=== PATIENT | female | born 1990 | race Caucasian/White ===

== ENCOUNTER 2024-09-14 14:55 | Outpatient (CLI) | payer OTHER, SELFPAY | END 2024-09-14 14:56 | disposition home or self-care (01) | LOC: NFLDREF 09-16 08:48 | PROVIDERS: Visit Provider Obstetrics & Gynecology | DX: O99.213 Obesity complicating pregnancy, third trimester (principal); O35.AXX0 Maternal care for other (suspected) fetal abnormality and damage, fetal facial anomalies, not applicable or unspecified; Z3A.28 28 weeks gestation of pregnancy | CPT/HCPCS: 86592; 86850 ==

== ENCOUNTER 2024-09-14 14:58 | Outpatient (CLI) | payer OTHER, SELFPAY ==
--- NOTE | 2024-09-14 15:00 | CRLHL7_ITS ---
For Patients: As a result of the Century Cures Act, medical imaging exams and procedure reports are released immediately into your electronic medical record. You may view this report before your referring provider. If you have questions, please contact your health care provider. INDICATION: Obesity, evaluate mandible, maxilla and neck COMPARISON: None. TECHNIQUE: Real-time reynolds-scale imaging of the pelvis was performed. FINDINGS: heart rate 149 beats per minute. Sonographic gestational age 28 weeks 5 days and sonographic due date of 12/02/2024. Estimated weight 1317 grams, 42nd percentile. Single deepest pocket 5.0 cm. Placenta posterior. Vertex position. Images of the neck, mandible and maxilla are suboptimal due to position and gestational age. IMPRESSION: Images of the neck, mandible and maxilla are suboptimal due to position and gestational age. Dictated by Garett Mackey MD @ 09/15/2024 11:37:43 AM (Electronically Signed)
== END 2024-09-14 14:59 | disposition home or self-care (01) ==
LOC: US 14:59
PROVIDERS: Visit Provider Registered Nurse
DX: O99.210 Obesity complicating pregnancy, unspecified trimester (principal)
CPT/HCPCS: 76816

== ENCOUNTER 2024-09-15 08:00 | Outpatient (CLI) | payer OTHER, SELFPAY | END 2024-09-15 08:01 | disposition home or self-care (01) | LOC: NFLDREF 09-17 05:06 | PROVIDERS: Visit Provider Obstetrics & Gynecology | DX: Z34.93 Encounter for supervision of normal pregnancy, unspecified, third trimester (principal); Z3A.28 28 weeks gestation of pregnancy | CPT/HCPCS: 82951; 82952 ==

== ENCOUNTER 2024-10-07 09:28 | Outpatient (CLI) | payer OTHER, SELFPAY | END 2024-10-07 09:29 | disposition home or self-care (01) | LOC: US 09:29 | PROVIDERS: Visit Provider Obstetrics & Gynecology | DX: O99.213 Obesity complicating pregnancy, third trimester (principal); Z3A.32 32 weeks gestation of pregnancy | CPT/HCPCS: 76811 ==

== ENCOUNTER 2024-10-23 14:35 | Outpatient (CLI) | payer OTHER, SELFPAY ==
--- NOTE | 2024-10-23 14:00 | CRLHL7_ITS ---
For Patients: As a result of the Cures Act, medical imaging exams and procedure reports are released immediately into your electronic medical record. You may view this report before your referring provider. If you have questions, please contact your health care provider. INDICATION: High BMI. TECHNIQUE: Real time reynolds scale imaging of the fetus was performed. COMPARISON: 10/07/2024 FINDINGS/IMPRESSION: Sonographic imaging demonstrates a single living intrauterine gestation. Fetus demonstrates a regular cardiac rate of 136 beats per minute. Fetus has a vertex position. The placenta lies posteriorly. Amniotic fluid volume appears normal and there is a single deepest pocket of 7.6 cm. The estimated weight is 2203gm which lies at the 20th %. On the prior OB ultrasound dated 10/07/2024 the estimated weight was at the 23rd percentile. BPD 9th percentile. HC is 7th percentile. AC is 36th percentile. FL is 11th percentile. Sonographic gestational age 33 weeks 2 days and a sonographic due date 12/09/2024. Sonographic age 8 days behind the clinical age. The fetus was active and demonstrated normal breathing movements. There was normal flexion and extension of the trunk and extremities. Biophysical profile 05/28. Dictated by Garett Mackey MD @ 10/25/2024 6:35:46 AM (Electronically Signed)
== END 2024-10-23 14:36 | disposition home or self-care (01) ==
LOC: US 14:35
PROVIDERS: Visit Provider Obstetrics & Gynecology
DX: O99.211 Obesity complicating pregnancy, first trimester (principal); Z3A.08 8 weeks gestation of pregnancy
CPT/HCPCS: 76816; 76819

== ENCOUNTER 2024-10-30 13:59 | Outpatient (CLI) | payer OTHER, SELFPAY ==
--- NOTE | 2024-10-30 14:00 | CRLHL7_ITS ---
For Patients: As a result of the Century Cures Act, medical imaging exams and procedure reports are released immediately into your electronic medical record. You may view this report before your referring provider. If you have questions, please contact your health care provider. INDICATION: Obesity COMPARISON: 10/23/2024 TECHNIQUE: Real time reynolds scale imaging of the fetus was performed. Without non-stress testing. FINDINGS: Sonographic imaging demonstrates a single living intrauterine gestation. Fetus demonstrates a regular cardiac rate of 147 beats per minute. Fetus has a vertex position. The amniotic fluid volume appears normal and there is a single deepest pocket measurement of 7.2 cm. The fetus was active and demonstrated normal breathing movements. There was normal flexion and extension of the trunk and extremities. IMPRESSION: Normal biophysical profile score of 8 out of 8. Dictated by Garett Mackey MD @ 10/30/2024 7:49:15 PM (Electronically Signed)
== END 2024-10-30 14:00 | disposition home or self-care (01) ==
LOC: US 14:01
PROVIDERS: Visit Provider Obstetrics & Gynecology
DX: O99.210 Obesity complicating pregnancy, unspecified trimester (principal)
CPT/HCPCS: 76819

== ENCOUNTER 2024-11-06 13:53 | Outpatient (CLI) | payer OTHER, SELFPAY ==
--- NOTE | 2024-11-06 14:00 | CRLHL7_ITS ---
For Patients: As a result of the Century Cures Act, medical imaging exams and procedure reports are released immediately into your electronic medical record. You may view this report before your referring provider. If you have questions, please contact your health care provider. INDICATION: Maternal obesity TECHNIQUE: Ultrasound OB pelvis transabdominal. Real-time reynolds-scale imaging of the fetus was performed with color Doppler and spectral Doppler analysis of the umbilical artery without stress testing. COMPARISON: 10/30/2024 FINDINGS: Sonographic imaging demonstrates a single living intrauterine gestation. Fetus demonstrates a regular cardiac rate of 134 beats per minute. Fetus has a cephalic orientation. The placenta lies posterior. Amniotic fluid volume appears normal with an ANA CRISTINA of 18.9 cm. breathing movements, motion, and tone were all observed. IMPRESSION: Single viable intrauterine with a biophysical profile 05/28. Dictated by Marcus Winters MD @ 11/06/2024 4:23:52 PM (Electronically Signed)
== END 2024-11-06 13:54 | disposition home or self-care (01) ==
LOC: US 13:55
PROVIDERS: Visit Provider Obstetrics & Gynecology
DX: O99.210 Obesity complicating pregnancy, unspecified trimester (principal)
CPT/HCPCS: 76819; 87081; 87653

== ENCOUNTER 2024-11-10 23:08 | Inpatient (IN) | payer OTHER, SELFPAY ==
[2024-11-10 23:19] VITALS: PULSE 90; O2SAT 98
[2024-11-10 23:20] VITALS: BP 117/83; PULSE 85
[2024-11-10 23:45] VITALS: TEMP 36.7
[2024-11-11] VITALS (69 sets, daily range): BP systolic 79–145; BP diastolic 46–88; PULSE 70–116; RESP 16; TEMP 36.4–36.9; O2SAT 88–99; BMI 46.3
[2024-11-11 00:29] LABS: Basophils Absolute Auto 0.02 K/uL (0.00-0.30); Basophils Percent Auto 0.2 % (0.0-3.0); Eosinophils Absolute Auto 0.04 K/uL (0.00-0.50); Eosinophils Percent Auto 0.4 % (0.0-7.0); Hematocrit 35.5 % (33.0-51.0); Hemoglobin* 12.1 gm/dL (12.0-16.0); Immature Granulocytes Abs Auto 0.03 K/uL (0.00-0.30); Immature Granulocytes Pct Auto 0.3 %; Lymphocytes Percent Auto 15.5 % (20-44); Mean Corpuscular HGB Conc 34 gm/dL (32-36); Mean Corpuscular Hemoglobin 32 pg (26-34); Mean Corpuscular Volume 93 fL (80-100); Monocytes Percent Auto 5.3 % (0.0-11.0); Neutrophils Percent Auto 78.3 % (42.0-72.0); Platelet Count* 307 K/uL (140-440); RDW Coefficient of Variation % 12.1 % (11.5-15.5); Red Blood Count 3.81 m/uL (4.00-5.20)
[2024-11-11 00:30] LABS: Slide Review Reflex No
[2024-11-11] MEDS: ACETAMINOPHEN 500 MG TABLET 1000 MG PO (01:30)
[2024-11-11] MEDS: OXYTOCIN 30 unit/500 ML in NS 30 UNIT/500 ML BAG IVPB (04:37)
[2024-11-11] MEDS: LACTATED RINGERS 1000 ML 1,000 ML IV ×2 (04:38→05:35)
[2024-11-11] MEDS: LIDOCAINE 2% (PF) 5 ML VIAL EPIDURAL (05:33)
[2024-11-11] MEDS: ROPIVACAINE 0.2% 100 ml 100 ML 12 MG EPIDURAL (05:37)
[2024-11-11] MEDS: PHENYLEPHRINE 100 MCG/ML SYRINGE IVP ×4 (05:41→05:49)
--- NOTE | 2024-11-11 05:57 | P.ANBPRC_ITS ---
PFSH PFSH Surgical History [place] teeth extracted ?K08.409 - Partial loss of teeth, unspecified cause, unspecified class (ICD- 10) History of tonsillectomy ?Z90.89 - Acquired absence of other organs (ICD-10) Social History What is your current living situation?: I presently have a place to live Problems where you live: no known problems In the past 12 months, utilities in danger of being shut off: no In past 12 months, lack of transportation kept you from medical appts, meetings, work, or getting things needed for daily living: no In the past 12 mos, have been you worried that your food would run out before you had money to buy more?: unable to answer In the past 12 mos, the food you bought just didn't last and you didn't have money to buy more?: never true Smoking Status: Never smoker How often does anyone, including family, friends and others, physically hurt you : never How often does anyone, including family, friends and others, insult or talk down to you: never How often does anyone, including family, friends and others, threaten you with harm: never How often does anyone, including family, friends and others, scream or curse at you: never Meds Home Medications and Allergies Home Medications ?Medication ?Instructions ?Recorded ?Confirmed ?Type aspirin 81 mg chewable tablet 81 mg PO QDAY 09/04/24 11/10/24 History cholecalciferol (vitamin D3) 10 10 mcg PO QDAY 09/04/24 11/10/24 History mcg (400 unit) capsule docosahexaenoic acid 200 mg 1 mg PO 09/04/24 11/06/24 History capsule ( DHA) magnesium 200 mg tablet 200 mg PO QDAY 09/04/24 11/10/24 History calcium carbonate (Tums) 200 mg PO BID 09/14/24 11/10/24 History Allergies Allergy/AdvReac Type Severity Reaction Status Date / Time No Known Drug Allergies Allergy Verified 11/06/24 10:50 Results Labs Labs: Laboratory Results - last 24 hr 11/11/24 00:15 WBC 10.10 RBC 3.81 L Hgb 12.1 Hct 35.5 MCV 93 MCH 32 MCHC 34 RDW Coeff of [place] 12.1 Plt Count 307 Neut % (Auto) 78.3 H Lymph % (Auto) 15.5 L [place] % (Auto) 5.3 Eos % (Auto) 0.4 Baso % (Auto) 0.2 Neut # (Auto) 7.90 H Lymph # (Auto) 1.60 [place] # (Auto) 0.50 Eos # (Auto) 0.04 Baso # (Auto) 0.02 Abs Immat Gran (auto) 0.03 Imm/Tot Granulo (auto) 0.3 Blood Type O Positive Antibody Screen NEGATIVE Vital Signs Vital Signs: Last Vital Signs Temp 97.5 F L 11/11/24 04:56 Pulse 96 11/11/24 05:55 BP 102/61 11/11/24 05:55 Pulse Ox 99 11/11/24 05:55 Anesthesia Procedures Epidural Insertion Patient Location: OB Start Time: 05:20 Stop Time: 06:20 Start Date: 11/11/24 Stop Date: 11/11/24 Reason for Block: procedure for pain Patient Position: sitting Performed By: Dea Nance Preanesthetic Checklist: IV checked, risks and benefits discussed, monitors and equipment checked, pre-op evaluation, timeout performed and anesthesia consent Prep: chlorhexidine gluconate Monitoring: blood pressure monitoring, continuous pulse oximetry and heart rate Approach: midline Vertebral Space: lumbar (1-5) Epidural Technique: YOLIE saline Needle Type: Tuohy needle Injection Technique: continuous catheter (continuous catheter) Needle gauge: 17 Needle Length (cm): 10 cm Needle Insertion Depth (cm): 8 Catheter Gauge: 19 Catheter Type: multi-orifice Catheter at skin depth (cm): 15 Test Dose Result: negative and lidocaine 1.5% with epinephrine 1 to 200,000
--- NOTE | 2024-11-11 06:40 | PM.OBHPLI ---
OB - H&P: HPI Labor/Induction History of Present Illness Time Seen by Provider: 06:41 Date Seen: 11/11/24 Chief Complaint: The patient is a 34 year old 1 para 0 at 37 weeks 0 days gestation by LMP, who presents with PROM. SHANA: 12/01/2024. Membranes ruptured at 10:15PM on 11/10/2024, clear fluid,GBS negative. Reported some cramping on admission mostly feeling in her back. Normal movement. complicated by prepregnancy BMI >40. Chief complaint: Maternity : 1 Para: 0 Narrative: Penny Herron is a 34 year old female Specific Issues/Plans G 1 P 0 : [place] Expecting a girl! # Obesity. Pre BMI 42. [x]Level 2 ultrasound [x]Daily low-dose aspirin []Nutrition consult discussed 09/14; will await 3 hr GTT results. []Anesthesia consult [x]Growth ultrasound at 28 and 34 weeks []Weekly testing starting 34 weeks growth ultrasound at 06/09/2034 weeks []Delivery at 39 weeks # 28 week growth US and f/u on maxilla, mandible, and neck [x] Repeat US: EFW: 42%. Images of neck, mandible, and maxilla are suboptimal due to the position of the fetus. Normal on 10/07 w/ MFM aside from HC/BPD of <3%ile - pt declined repeat US with MFM, growth US on 10/23/24 with BPD/HC at 8/8 and 7.3%ile respectively. # 1 hr GTT = 142. 3 hr GTT: Normal # Father of baby born with extra tissue in his lungs and needed surgery to remove it. Possible congenital pulmonary airway malformation (CPAM). # NIPT completed. Insufficient DNA. Elected to not repeat. Labs: Blood type O positive, antibody screen negative, hemoglobin 12.4, platelets 382, rubella immune, TPPA nonreactive, hepatitis-B antigen negative, HIV negative, chlamydia and gonorrhea both negative, urine culture with mixed bacteria, hepatitis-C negative, hemoglobin A1c 5.3 NIPT: 05/05/2024: Insufficient DNA. Patient elected to not repeat this test. Pap smear 05/05/2024: Normal, negative HPV Ultrasound: 05/01/2024: Single live intrauterine at 9 weeks 1 day EGA. 05/25/2024: IUP at 12 weeks 6 days. Nuchal area appears normal. Ultrasound agrees with assigned SHANA 12/01/2024. anatomy appears normal for gestational age. Image quality in detail limited by gestational age. Grossly normal views noted above. No adnexal masses were identified. Recommendations:NIPS 1st draw insufficient. All woman should be offered maternal serum alpha protein screening at 15-18 weeks. An early anatomic survey has up to 60-70% detection rate for anomalies. The above survey is reassuring. A detailed exam with FE near 20 weeks is still recommended due to BMI. 08/05/2024: IUP at 23 weeks 1 day. No anomalies detected. echocardiogram appears normal. Image quality in detail limited by maternal habitus. No markers for aneuploidy seen. biometry is consistent with gestational age. ANA CRISTINA appears normal. Normal cervical length. No evidence of placenta previa. * maxilla inadequately visualized, mandible inadequately visualized, neck inadequately visualized. Recommendations: Growth and follow-up anatomy at 28 weeks Repeat growth ultrasound at 34 weeks Weekly testing at 34 weeks and radiology due to pre gravid BMI 09/14/24: cephalic, SDP 5.0, EFW 42%, AC 63%, awaiting final report [] 10/07: EFW 1792 g, 22.5 percentile. Normal anatomy visualized - normal mandible/maxilla. MVP 7.3. Cervix appears long/closed. [Plan for testing] H&P: [] Imaging: [Summary of level II or follow up US here] Vaccinations: Flu: Declined Covid: Completed, not up-to-date. Recommended, declines. Tdap: 09/28/24 RSV: Declined 32 week mental health: [] Last pap: April 2024 normal, negative HPV History of Present Dating criteria: based on LMP care: good care Ultrasounds: normal 1st trimester US, normal mid trimester US and other Labs Blood type: O (+) positive Rubella: immune RPR/VDLR: nonreactive GBS status: negative HBsAG: negative Review of Systems Status of ROS: Reports: 10 or more systems reviewed and unremarkable except as noted in History and below Meds Home Medications and Allergies Home Medications ?Medication ?Instructions ?Recorded ?Confirmed ?Type aspirin 81 mg chewable tablet 81 mg PO QDAY 09/04/24 11/10/24 History cholecalciferol (vitamin D3) 10 10 mcg PO QDAY 09/04/24 11/10/24 History mcg (400 unit) capsule docosahexaenoic acid 200 mg 1 mg PO 09/04/24 11/06/24 History capsule ( DHA) magnesium 200 mg tablet 200 mg PO QDAY 09/04/24 11/10/24 History calcium carbonate (Tums) 200 mg PO BID 09/14/24 11/10/24 History Allergies Allergy/AdvReac Type Severity Reaction Status Date / Time No Known Drug Allergies Allergy Verified 11/06/24 10:50 OB - H&P: Exam Physical Exam: Vital signs: Temp Pulse BP Pulse Ox 97.5 F L 72 115/66 95 11/11/24 04:56 11/11/24 06:23 11/11/24 06:23 11/11/24 06:40 Narrative: General: Pleasant, well-groomed woman in no acute distress. Vital signs: per the EMR Chest: CTA bilaterally Heart: RRR w/o gallop, rub or murmur Abdomen: Gravid, nontender EFM: Baseline: 140's. Accelerations: present. Decelerations: absent. Moderate variability. Reactive. Category 1 TOCO: Q2-5minutes: patient reports cramping in her back. SVE per nursin.5/90%/-1/post/soft Extremities: no pain or edema. OB - Results Labs Labs: Short CBC 11/11/24 Range/Units 00:15 WBC 10.10 (4.50-11.00) K/uL Hgb 12.1 (12.0-16.0) gm/dL Hct 35.5 (33.0-51.0) % Plt Count 307 (140-440) K/uL OB - Problem Based A/P Additional Plan (1) PROM (premature rupture of membranes): Status: Acute Plan 1. GBS negative. 2. Patient desires epidural for labor analgesia 3. Blood type O+ Delivery/Labor/Induction Plan Plan: other (Expectant management for 6 hours if no spontaneous labor then pitocin per induction protocol. ) Induction method: per pitocin protocol
--- NOTE | 2024-11-11 07:40 | PM.OBPNL ---
Subjective Time Seen by Provider: 07:30 Date Seen: 11/11/24 Narrative: The patient reports feeling restless. She has been aware of pelvic pressure for about an hour. Objective Vital Signs: Last Vital Signs Temp 97.5 F L 11/11/24 04:56 Pulse 91 11/11/24 07:32 BP 106/59 L 11/11/24 07:32 Pulse Ox 94 11/11/24 06:40 Pelvic Exam Dilation (cm): 8.5 Effacement (%): 100 Station: 0 Contractions Contraction Frequency: not tracing well Contraction intensity: Moderate Pitocin Rate (mU/min): 3 Assessment Assessment: active labor Station: 0 Status: Category ll Heart Rate Baseline: 130 Heating And Air Conditioning Mechanic Variability: Moderate (6-25) Monitor Accelerations: Present Monitor Decelerations: Variable Plan Plan: IUPC placed to better monitor contractions and titrate pitocin. Anticipate vaginal delivery.
[2024-11-11] MEDS: LIDOCAINE 1 % PF 30 ML INJECTION (12:03)
--- NOTE | 2024-11-11 12:26 | W.PM.OBVAGDE ---
OB Procedure Vag Delivery Mother Details Mother Details: The patient is a 34 year-old, 1, Para 0, admitted on 11/10/2024 at 37 0/7 weeks gestation with premature rupture of membranes (PROM). Membranes ruptured at 10:15PM on 11/10/2024, clear fluid, GBS negative. Reported some cramping on admission mostly feeling in her back. Normal movement. complicated by prepregnancy BMI >40. Pitocin augmentation of labor began at 0430 on 11/11/2024. : 1 Para: 0 Weeks Gestation: 37 Admission Date: 11/10/24 Additional Details Amniotic Membrane Status: SROM Amniotic Membrane Rupture Date: 11/10/24 Amniotic Membrane Rupture Time: 22:15 Amniotic Membrane Fluid Description: Clear Analgesia/Anesthesia Type: Epidural (at 0530 on 12/12/2024) Waterbirth: No Pitcoin: Yes Intrapartal Events: Labor Augmentation Delivery augmentation: pitocin Labor Onset: 03:45 Complete: 10:57 Pushin:11 Heart: heart tones during second stage were 120 baseline with variable decelerations, category 2. Delivery Details Delivery Date: 11/11/24 Delivery Time: 11:55 Route of delivery: Infant Gender: Female Infant Viability: Alive; Heart Rate Present Position at Delivery: OA Delivery Details: Delivered via spontaneous vaginal delivery. Infant was placed on maternal abdomen.? Cord was clamped and cut after a 30-60 second delay. Nose and mouth were bulb suctioned.? taken to the warmer for evaluation and CPAP. Infant weight pending. Additional Details Shoulder Dystocia: No Placenta Delivery Time: 12:02 Placental Delivery Description: Spontaneous Delivery repair: Chromic Procedure Done: Global Blood Loss: 130 Laceration: Perineal - 2nd Degree (and right periurethral 1st degree) Episiotomy Description: None Blood Loss Measurement Type: QBL Bakri Used: No Sponge/Need Count Correct: Yes Cord Vessel Description: 3 Vessels Event Summary Status: Mother and were stable after delivery. Disposition: floor
[2024-11-11 13:40] LABS: Hematocrit 34.3 % (33.0-51.0); Hemoglobin* 11.5 gm/dL (12.0-16.0); Mean Corpuscular HGB Conc 34 gm/dL (32-36); Mean Corpuscular Hemoglobin 32 pg (26-34); Mean Corpuscular Volume 94 fL (80-100); Platelet Count* 291 K/uL (140-440); Red Blood Count 3.64 m/uL (4.00-5.20); White Blood Count* 14.21 K/uL (4.50-11.00)
[2024-11-11 13:44] LABS: Slide Review Reflex No
[2024-11-11 13:57] LABS: Alanine Aminotransferase* 19 U/L (4-35); Aspartate Amino Transferase* 22 U/L (12-35); Creatinine* 0.5 mg/dL (0.5-1.5); Estimated Glomerular Filt Rate 127 ml/min
[2024-11-11 13:58] LABS: Blood Urea Nitrogen* 9 mg/dL (5-24)
--- NOTE | 2024-11-11 16:20 | P.DS_ITS ---
DS: Providers Provider Time Seen by Provider: 16:20 Date Seen: 11/11/24 Date of admission: 11/11/24 12:31 Primary care physician: Not a Local Provider Admitting Clinician: Siri Barbosa MD Attending Physician on discharge: Destinee Monge MD Date of Discharge: 11/11/24 DS: Diagnosis Discharge Diagnosis (1) Delivery normal: Status: Acute Exam Const: Vital Signs, click to edit/add: Vital Signs - 24 hr 11/10/24 23:19 11/10/24 23:20 11/10/24 23:45 Temperature 98.1 F Pulse Rate 85 Respiratory Rate Blood Pressure 117/83 Pulse Oximetry 98 11/11/24 00:26 11/11/24 00:30 11/11/24 02:40 Temperature 98 F 97.5 F L 97.5 F L Pulse Rate Respiratory Rate Blood Pressure Pulse Oximetry 11/11/24 03:40 11/11/24 04:36 11/11/24 04:56 Temperature 97.7 F 97.5 F L Pulse Rate 83 Respiratory Rate Blood Pressure 128/79 Pulse Oximetry 11/11/24 05:21 11/11/24 05:21 11/11/24 05:26 Temperature Pulse Rate Respiratory Rate Blood Pressure Pulse Oximetry 88 97 99 11/11/24 05:28 11/11/24 05:30 11/11/24 05:31 Temperature Pulse Rate 78 81 Respiratory Rate Blood Pressure 122/82 123/80 Pulse Oximetry 98 11/11/24 05:32 11/11/24 05:34 11/11/24 05:36 Temperature Pulse Rate 88 83 98 Respiratory Rate Blood Pressure 117/79 124/78 121/67 Pulse Oximetry 11/11/24 05:38 11/11/24 05:41 11/11/24 05:43 Temperature Pulse Rate 91 81 78 Respiratory Rate Blood Pressure 117/63 98/56 L 90/53 L Pulse Oximetry 11/11/24 05:44 11/11/24 05:48 11/11/24 05:50 Temperature Pulse Rate 72 70 90 Respiratory Rate Blood Pressure 82/49 L 133/82 123/79 Pulse Oximetry 97 11/11/24 05:52 11/11/24 05:55 11/11/24 06:00 Temperature Pulse Rate 89 96 Respiratory Rate Blood Pressure 121/77 102/61 Pulse Oximetry 99 98 11/11/24 06:00 11/11/24 06:01 11/11/24 06:03 Temperature 97.7 F Pulse Rate 77 81 Respiratory Rate Blood Pressure 79/46 L 118/59 L Pulse Oximetry 11/11/24 06:05 11/11/24 06:10 11/11/24 06:15 Temperature Pulse Rate Respiratory Rate Blood Pressure Pulse Oximetry 99 98 97 11/11/24 06:20 11/11/24 06:23 11/11/24 06:25 Temperature Pulse Rate 72 Respiratory Rate Blood Pressure 115/66 Pulse Oximetry 97 96 11/11/24 06:30 11/11/24 06:32 11/11/24 06:35 Temperature Pulse Rate Respiratory Rate Blood Pressure Pulse Oximetry 98 88 93 11/11/24 06:40 11/11/24 06:40 11/11/24 07:30 Temperature 97.6 F Pulse Rate Respiratory Rate 16 Blood Pressure Pulse Oximetry 95 94 11/11/24 07:32 11/11/24 07:48 11/11/24 08:02 Temperature Pulse Rate 91 89 92 Respiratory Rate Blood Pressure 106/59 L 116/72 128/60 Pulse Oximetry 11/11/24 08:19 11/11/24 08:33 11/11/24 08:48 Temperature Pulse Rate 86 82 86 Respiratory Rate Blood Pressure 123/66 112/56 L 116/62 Pulse Oximetry 11/11/24 08:56 11/11/24 09:02 11/11/24 09:17 Temperature 98.1 F Pulse Rate 95 96 Respiratory Rate 16 Blood Pressure 115/71 116/65 Pulse Oximetry 11/11/24 09:32 11/11/24 09:48 11/11/24 10:03 Temperature Pulse Rate 92 101 H 90 Respiratory Rate Blood Pressure 116/63 120/68 132/77 Pulse Oximetry 11/11/24 10:19 11/11/24 10:19 11/11/24 10:32 Temperature 98.3 F Pulse Rate 79 79 Respiratory Rate 16 Blood Pressure 121/60 120/57 L Pulse Oximetry 11/11/24 10:48 11/11/24 11:03 11/11/24 11:17 Temperature Pulse Rate 78 96 83 Respiratory Rate Blood Pressure 114/63 137/87 135/84 Pulse Oximetry 11/11/24 11:28 11/11/24 11:32 11/11/24 11:48 Temperature 98.2 F Pulse Rate 89 82 Respiratory Rate 16 Blood Pressure 141/78 H 137/74 Pulse Oximetry 11/11/24 11:59 11/11/24 12:02 11/11/24 12:07 Temperature 98.3 F Pulse Rate 90 82 Respiratory Rate Blood Pressure 137/73 124/63 Pulse Oximetry 11/11/24 12:07 11/11/24 12:22 11/11/24 12:37 Temperature 98.5 F Pulse Rate 88 80 Respiratory Rate Blood Pressure 143/85 H 142/83 H Pulse Oximetry 11/11/24 12:52 11/11/24 12:52 11/11/24 13:07 Temperature Pulse Rate 78 80 Respiratory Rate 16 Blood Pressure 140/82 H 145/87 H Pulse Oximetry 11/11/24 13:22 11/11/24 13:37 11/11/24 13:52 Temperature Pulse Rate 83 83 85 Respiratory Rate Blood Pressure 137/86 134/88 133/87 Pulse Oximetry 11/11/24 15:38 Temperature Pulse Rate 116 H Respiratory Rate Blood Pressure 130/83 Pulse Oximetry Documenting provider has reviewed patient's vital signs: yes Common normals: no apparent distress and oriented x3 General appearance: cooperative and comfortable HENMT: Common normals: normocephalic Head and scalp: normocephalic Resp: Common normals: normal respiratory effort Cardio: Common normals: regular rate and regular rhythm Rate: regular rate Rhythm: regular rhythm GI: Common normals: soft to palpation and non-tender Inspection: normal to inspection Palpation: soft : Uterus: U/1 and firm Uterus palpation: uterus nontender Extremity: Common normals: normal to inspection and no pedal edema Neuro: Common normals: oriented x3 Psych: Common normals: affect normal OB - DS: Summary Hospital Course Hospital Course: The patient is a 34 year old G1 now P1001 at 37 1/7 weeks gestation that presented to the Center on 11/10/24 with premature rupture membranes at term. Labor was augmented with IV Pitocin. She had an uncomplicated vaginal delivery. She delivered a viable female . She is planning to breast feed. the patient has done well. Her infant required CPAP following delivery, and was transferred to transferred NICU late in the afternoon on 11/11/2024. The patient had a few documented blood pressures during the second stage of labor in the 140s over 80s, but all of these were within inappropriately-sized blood pressure cuff. Following delivery, blood pressures remained stable in the 130s over 80s. CBC, ALT, AST were normal. Peripartum Data delivery method: Vaginal Laceration description: Perineal - 2nd Degree (and right periurethral 1st degree) complications: none Infant Gender: Female Discharge Plan: transfer to NICU Status at Discharge Functional status at discharge: independent ambulation Time Spent with Patient Time attestation: Total time spent providing and/or coordinating discharge services: Discharge Plan Discharge Disposition: Home, Self-Care Date of Admission: 11/11/24 12:31 Attending Provider on Discharge: Destinee Monge Primary Care Provider: Provider,Not a Local Condition: Stable Anticipated Discharge Date/Time: 11/11/24 18:31 Discharge Medications: New docusate sodium 100 mg Capsule 100 mg PO DAILY Qty: 30 0RF ibuprofen 600 mg Tablet 600 mg PO Q6H PRNQty: 30 0RF Continued DHA 200 mg capsule 1 mg PO DAILY cholecalciferol (vitamin D3) 10 mcg (400 unit) capsule 10 mcg PO QDAY aspirin 81 mg tablet,chewable 81 mg PO QDAY magnesium 200 mg tablet 200 mg PO QDAY calcium carbonate [Tums] 200 mg calcium (500 mg) tablet,chewable 200 mg PO BID Discharge Orders: Discharge Order (Routine); Ordered 11/11/24 Ordered By: Destinee Monge Patient Education: OB High Blood Pressure DC, OB Over the Counter Medication Information, OB Vaginal/Breast Feeding Activity Level: Activity as Tolerated Discharge Diet: Regular Follow Up Appointments: Provider,Not a Local [Primary Care Provider] - Forms: [facility] Info Instructions
[2024-11-12 05:52] LABS: Rapid Plasma Reagin (RPR) Non Reactive (Non Reactive)
== END 2024-11-11 18:57 | disposition home or self-care (01) | DRG 807 ==
LOC: OB OUT 11-12 06:44 → OB 11-12 06:44
PROVIDERS: Obstetrics & Gynecology; Admitting Provider Obstetrics & Gynecology; Visit Provider Obstetrics & Gynecology
DX: O42.02 Full-term premature rupture of membranes, onset of labor within 24 hours of rupture (principal); Z37.0 Single live birth; O99.214 Obesity complicating childbirth; E66.9 Obesity, unspecified; Z3A.37 37 weeks gestation of pregnancy; O76 Abnormality in fetal heart rate and rhythm complicating labor and delivery; O70.1 Second degree perineal laceration during delivery
CPT/HCPCS: 01967; 36415; 82565; 84450; 84460; 84520; 85025; 85027; 86592; 86850; 86900; 86901; 88307; G0463; A9270; J2003; J2371; J2795; J7120